=== PATIENT | male | born 1975 | race Caucasian/White ===

== ENCOUNTER 2017-07-19 20:31 | Emergency (ER) | payer OTHER ==
[~2017-07-19 20:31] MED LIST: ASPIRIN 81M81 MG/TA2 PO; BENGAY COLD THERAP5% TOP; LITHIUM 60600 MG/CAP PO; MAG-OX 400400 MG/TAB PO; MOTRIN 800800 MG/TAB PO; NEURONTIN600 MG/TAB PO; NEXIUM 40MG40 MG; NO HOME MEDICATIONS; PAXIL 20MG20 MG PO; PROTONIX 40MG T40 MG PO; ROBAXIN 50500 MG/TAB PO; ULTRAM 50MG TAB50 MG PO; VOLTAREN 75 DR75 MG PO; VYTORIN 10 MG-11 TAB PO; ZANAFLEX 4MG TAB4 MG PO
[2017-07-19 20:55] LABS: BASO % 0.4 % (0.0-2.0); EOS # 0.2 (0.0-0.7); EOS % 2.8 % (0-4.0); GRAN # 3.9 (1.4-6.5); GRAN % 52.2 % (42.2-75.2); HEMATOCRIT 43.8 % (42.0-52.0); HEMOGLOBIN 15.9 g/dl (13.5-18.0); LYMPH # 2.6 (1.2-3.4); LYMPH % 35.8 % (20.0-51.0); MEAN CELL VOLUME 90 fl (80.0-100.0); MEAN CORPUSCULAR HEMOGLOBIN 33 pg (27.0-31.0); MEAN CORPUSCULAR HGB CONC 36 g/dl (33.0-37.0); MEAN PLATELET VOLUME 11.1 fl (7.4-10.4); MONO # 0.6 (0.1-0.6); MONO % 8.5 % (1.7-9.3); PLATELET COUNT 174 K/mm3 (130-400); RED BLOOD COUNT 4.89 M/mm3 (4.20-5.60); REDCELL DISTRIBUTION WIDTH-CV 13.3 % (11.5-14.5)
[2017-07-19 20:58] LABS: INR 0.8 (0.8-3.0); PROTHROMBIN TIME 9.3 SECONDS (9.7-12.8)
[2017-07-19 21:03] LABS: ALBUMIN 3.8 gm/dL (3.5-5.0); BILIRUBIN,TOTAL 0.4 mg/dL (0.0-1.0); CALCIUM 9.1 mg/dL (8.4-10.2); CREATININE, serum 0.79 mg/dL (0.66-1.25); POTASSIUM 3.9 mmol/L (3.4-5.0); TOTAL PROTEIN 6.9 gm/dL (6.4-8.2)
[2017-07-19 21:17] LABS: ERYTHROCYTE SEDIMENTATION RATE 1 mm/hr (0-15)
[2017-07-19 21:20] LABS: TROPONIN-I 0.358 ng/mL (0.000-0.034)
[2017-07-19 21:31] LABS: C-REACTIVE PROTEIN 1.2 mg/dL (0.0-0.9)
[2017-07-20 00:45] VITALS: BP 116/86; PULSE 88; TEMP 98
== END 2017-07-20 01:45 | disposition short-term general hospital (02) ==
LOC: COL.ER 20:31
PROVIDERS: Emergency Medicine
DX: R07.89 Other chest pain (principal); K21.9 Gastro-esophageal reflux disease without esophagitis; F43.10 Post-traumatic stress disorder, unspecified; F17.210 Nicotine dependence, cigarettes, uncomplicated; Z79.82 Long term (current) use of aspirin
CPT/HCPCS: J2060; J2270; J2405; J7030; Q9967

== ENCOUNTER 2017-07-23 20:10 | Emergency (ER) | payer OTHER ==
[~2017-07-23] VITALS: Ht 172.7 cm; Wt 90.5 kg
[2017-07-23 20:14] VITALS: BP 137/78; TEMP 97.9
[2017-07-23] MEDS ORDERED: TIAZAC240 MG PO (20:33)
[2017-07-23] MEDS ORDERED: NEXIUM 40MG40 MG PO (20:34)
[2017-07-23 20:49] VITALS: PULSE 68
== END 2017-07-23 20:49 | disposition home or self-care (01) ==
LOC: COL.ER 20:10
DX: R58 Hemorrhage, not elsewhere classified (principal); F17.210 Nicotine dependence, cigarettes, uncomplicated; I10 Essential (primary) hypertension; Z98.890 Other specified postprocedural states; Z79.82 Long term (current) use of aspirin

== ENCOUNTER 2019-07-14 00:23 | Emergency (ER) | payer OTHER ==
[~2019-07-14] VITALS: Ht 172.7 cm; Wt 95.5 kg
[~2019-07-14 00:23] MED LIST changes: +NEXIUM 40MG40 MG PO; +TIAZAC240 MG PO
[2019-07-14 00:29] VITALS: TEMP 98.1
[2019-07-14 01:13] LABS: BASO % 0.6 % (0.0-2.0); EOS # 0.1 (0.0-0.7); EOS % 2.7 % (0-4.0); GRAN # 2.5 (1.4-6.5); GRAN % 47.4 % (42.2-75.2); HEMATOCRIT 44.5 % (42.0-52.0); HEMOGLOBIN 15.3 g/dl (13.5-18.0); LYMPH # 2.1 (1.2-3.4); LYMPH % 39.7 % (20.0-51.0); MEAN CELL VOLUME 92 fl (80.0-100.0); MEAN CORPUSCULAR HEMOGLOBIN 32 pg (27.0-31.0); MEAN CORPUSCULAR HGB CONC 34 g/dl (33.0-37.0); MEAN PLATELET VOLUME 11.3 fl (7.4-10.4); MONO # 0.5 (0.1-0.6); MONO % 9.4 % (1.7-9.3); PLATELET COUNT 180 K/mm3 (130-400); RED BLOOD COUNT 4.85 M/mm3 (4.20-5.60); REDCELL DISTRIBUTION WIDTH-CV 13.2 % (11.5-14.5)
[2019-07-14 01:20] LABS: INR 0.9 (0.8-3.0); PROTHROMBIN TIME 10.4 SECONDS (9.7-12.8)
[2019-07-14 01:23] LABS: ALANINE AMINOTRANSFERASE 27 U/L (4-49); ALBUMIN 3.9 gm/dL (3.5-5.0); ALKALINE PHOSPHATASE 100 U/L (50-136); ANION GAP 6 mmol/L (7-16); AST,SGOT 22 U/L (15-37); BILIRUBIN,TOTAL 0.4 mg/dL (0.0-1.0); BLOOD UREA NITROGEN 19 mg/dL (9-20); CALCIUM 9.2 mg/dL (8.4-10.2); CARBON DIOXIDE 22 mmol/L (22-30); CHLORIDE 109 mmol/L (98-107); CREATININE, serum 0.89 (0.66-1.25); GLUCOSE 127 mg/dL (74-106); POTASSIUM 3.9 mmol/L (3.4-5.0); SODIUM 137 mmol/L (137-145); TOTAL PROTEIN 6.7 gm/dL (6.4-8.2)
[2019-07-14] MEDS ORDERED: PRIL40 PO (01:23)
[2019-07-14 01:34] LABS: TROPONIN-I < 0.012 ng/mL (0.000-0.035)
[2019-07-14 02:45] VITALS: BP 136/97; PULSE 62
== END 2019-07-14 02:52 | disposition home or self-care (01) ==
LOC: COL.ER 00:23
PROVIDERS: Emergency Medicine
DX: R07.89 Other chest pain (principal); K21.9 Gastro-esophageal reflux disease without esophagitis; F17.210 Nicotine dependence, cigarettes, uncomplicated; Z95.9 Presence of cardiac and vascular implant and graft, unspecified
CPT/HCPCS: J1885